=== PATIENT | female | born 1950 | race Caucasian/White ===

== ENCOUNTER 2017-02-17 09:47 | Day surgery (SDC) | payer OTHER ==
[2017-02-17] MEDS ORDERED: ceFAZolin 2 GM/DEXTROSE 100 ML IV ONE (10:30)
[2017-02-17] MEDS ORDERED: LIDOCAINE 1% 2 ML INJ ONE (10:34)
[2017-02-17] MEDS ORDERED: LIDOCAINE 1% 30 ML SDV ONE (11:13)
[2017-02-17] MEDS ORDERED: BUPIVACAINE 0.5% 30 ML SDV ONE (11:13)
[2017-02-17] MEDS ORDERED: DEXAMETHASONE 4 MG/ML VIAL ONE (11:14)
[2017-02-17] MEDS ORDERED: LIDOCAINE 2% 5 ML SDV ONE (11:14)
[2017-02-17] MEDS ORDERED: BACITRACIN 50,000 UNITS/10 ML SYR IRR ONE ×3 (11:14→14:55)
[2017-02-17] MEDS ORDERED: ROPIVACAINE HCL 20 MG/10 ML INJ EP ONE (11:14)
[2017-02-17] MEDS ORDERED: fentaNYL 100 MCG/2 ML INJ ONE (12:44)
[2017-02-17] MEDS ORDERED: MIDAZOLAM 2 MG/2 ML VIAL ONE ×2 (12:46)
[2017-02-17] MEDS ORDERED: PROPOFOL 200 MG/20 ML VIAL ONE ×2 (12:56→13:55)
[2017-02-17] MEDS ORDERED: BUPIVACAINE 0.25% 30 ML SDV ONE ×2 (13:25→15:36)
[2017-02-17] MEDS ORDERED: ONDANSETRON 4 MG/2 ML VIAL IVP PRN (15:38)
[2017-02-17] MEDS ORDERED: ONDANSETRON DISINTEGRATING 4 MG TAB PO PRN (15:39)
[2017-02-17] MEDS ORDERED: PROMETHAZINE HCL 25 MG/ML INJ IV PRN (15:39)
[2017-02-17] MEDS ORDERED: PROMETHAZINE HCL 25 MG TAB PO PRN (15:40)
[2017-02-17] MEDS ORDERED: KETOROLAC 30 MG/1 ML SDV ONE (15:48)
--- NOTE | 2017-02-18 20:46 | GOP ---
[f rep st] OPERATIVE REPORT DATE OF OPERATION: 02/17/2017 SURGEON: Margy Wilson DPM ANESTHESIA: MAC light general. ANESTHESIOLOGIST: Robert Ann MD. PREOPERATIVE DIAGNOSIS: 1. Hallux rigidus, left foot. 2. Deep internal hardware causing pain on the right foot. POSTOPERATIVE DIAGNOSIS: 1. Hallux rigidus, left foot. 2. Deep internal hardware causing pain on the right foot. PROCEDURE PERFORMED: 1. Cheilectomy with placement of graciela implant, Cartiva, left foot. 2. Removal of hardware, plate and screws, 1st metatarsophalangeal joint right foot. FINDINGS: ESTIMATED BLOOD LOSS: Less than 5 cc. DESCRIPTION OF PROCEDURE: The patient was brought into the operating room, placed on the operating table in the supine position. Intravenous sedation administered by the anesthesiologist. A posteri or tibial nerve block was obtained of the left foot, utilizing a total of 12 cc of 1:1:1 mix of 0.2% ropivacaine, 1% lidocaine plain and 0.5% Marcaine plain. A Reddy type block was administered to the right foot with 10 cc of a 1:1:1 mix of 0.5% Marcaine plain, 1% lidocaine plain and 0.2% ropivacain e plain. Both lower extremities were prepped and draped in usual sterile manner. Ankle tourniquets were applied with stockinette underneath. The left limb was then elevated and exsanguinated with a n Esmarch bandage. An ankle tourniquet was inflated to 240 mmHg and the procedure was begun on the left foot. Attention was directed towards the dorsal medial aspect of the 1st metatarsophalangeal joint, where a linear incision was created. Incision was carefully deepened, care of neurovascular structures an d clamp and cauterize bleeders. A large dorsal osteophyte bone spur was noted on the base of the 1s t metatarsal head with osteophytes along the dorsal aspect of the base of the phalanx. Resection pe rformed with rongeur, sagittal saw and X-shaped talia to smooth in all areas. The 1st metatarsal hea d was noted to be denuded of cartilage with bone exposed along its dorsal lateral aspect involving a pproximately 30% of the joint. Cartilage was intact medially and plantarly. On inspection of the b ase of the phalanx, it was the dorsal 20% which was absent of any cartilage with bone exposed over t he remaining cartilage on the base of the phalanx was noted to be intact. Center Christa ridge on th e metatarsal head was a bit more prominent than noted in most joints. Utilizing the Cartiva system, K-wire was driven down the 1st metatarsal head. C-arm utilized to verify alignment and positioning . Once determined to be good, the reamer system to prep the joint for the implant was utilized. Wo und copiously irrigated with bacitracin irrigation solution. And then utilizing the applicator, the Cartiva implant was placed into position and was noted to be a bit proud by approximately 0.5-1 mm. With passive hallux range of motion, there was no impingement, no catching, and range of motion im proved as compared to preoperatively. The wound was copiously irrigated with bacitracin irrigation solution. The periosteal and capsular closure achieved with 2-0 and 3-0 Vicryl. Subcutaneous closu re achieved with Monocryl. Tourniquet had been released and a normal hyperemic response was noted t o all digits. Skin was then closed with 4-0 Prolene in a simple interrupted as well as a horizontal mattress suture fashion. Dressings include Xeroform, 4x4s, fluffs, Zelda reinforced with tape and an Delvin bandage. Attention was directed toward the right foot, which was elevated and then exsanguinated with an Shavonne rc bandage. Ankle tourniquet inflated to 240 mmHg and the procedure was begun. Attention was dire cted toward along the previous incision line. Incision was deepened and directly beneath the skin w as the obvious plate, and screws, very little soft tissue coverage was noted. Plate and screws were removed without complication. The compression screw was noted in the plantar medial aspect of the hallux, it was noted to be loose, had quite prominent, and toggling, this was resected without any p roblems. The wound was copiously irrigated with bacitracin irrigation solution. Deep closure achie kaleigh with 3-0 Vicryl and then the tourniquet was released and normal hyperemic response noted to all digits. Subcutaneous closure achieved with Monocryl and the skin was closed with 4-0 Prolene in a h orizontal interrupted suture manner. Dressings included on this foot also Xeroform, 4x4s, fluff, Kl ing reinforced with tape and an Delvin bandage. The patient tolerated the procedure and anesthesia well and left the operating room with vital signs stable and vascular status intact to all digits. There were no intraoperative complications. In p ostoperative recovery, she was fitted with a cryo cuff. INDICATIONS FOR PROCEDURE: The patient underwent surgery on the right foot approximately a year ago for painful big toe joint. She had an uneventful recovery; however for her it was a difficult jer very with a fusion requiring the nonweightbearing and immobilization. She was hopeful after that perez rgery she could resume walking and be more active; however then the left foot started becoming more painful, which is why this time she has elected to proceed with surgery. She related that the left foot is limiting her activities and ability to be active. The right foot, she reports having pain at night, sometimes waking her and present on a daily basis. X-rays demonstrate solid fusion and good alignment. However the patient has little fatty tissue, and the hardware is very palpable, as well as the screw heads tender. At this time, she elects to p roceed with surgery on the right foot to remove hardware, and I feel it is medically necessary. PATHOLOGY: No specimen sent. ADDITIONAL INJECTABLES: Included 8 cc of 1:1 mix of 1% lidocaine plain with 0.25% Marcaine plain. This was prior to beginning the procedure, as it was difficult to get her fully numb but then it was achieved. And then postoperatively in the recovery room, she started experiencing pain reporting o n the dorsal aspect of her foot. An additional 4 cc of 0.25% Marcaine plain was injected to each fo ot since she was having symptoms in both. The patient's will be providing her transportatio n home. PROGNOSIS: Good. /[id number]/MODL
== END 2017-02-17 16:45 | disposition home or self-care (01) ==
LOC: FSGY 09:47
PROVIDERS: ATTEND Podiatrist
PROC: 0SPM04Z Removal of Internal Fixation Device from Right Metatarsal-Phalangeal Joint, Open Approach (ICD-10-PCS; principal; 2017-02-17 11:30)
PROC: 0YHN0YZ Insertion of Other Device into Left Foot, Open Approach (ICD-10-PCS; principal; 2017-02-17 11:30)
DX: M20.22 Hallux rigidus, left foot (principal); T84.84XA Pain due to internal orthopedic prosthetic devices, implants and grafts, initial encounter
CPT/HCPCS: J0690; J1100; J1885; J2250; J2704; J2795; J3010